=== PATIENT | female | born 1965 | race Caucasian/White ===

== ENCOUNTER → 2017-12-24 | Outpatient (CLI) | payer BC ==
[~2017-12-24] MED LIST: PREMARIN0.625 MG PO
--- NOTE | 2017-12-24 09:39 | Diagnostic Imaging Report ---
PROCEDURE:ABDOMINAL ULTRASOUND COMPARISON:None. INDICATIONS:Epigastric Pain, Screening for Colon Cancer TECHNIQUE:Dan scale and color Doppler ultrasound abdomen FINDINGS: Imaged portions of the inferior vena cava and abdominal aorta are of normal caliber. Normal pancreas. Right liver span 13.5 cm. Normal liver. Portal vein diameter 1.1 cm; normal flow direction. Normal gallbladder. Wall thickness 0.2 cm area common bile duct diameter is 0.6 cm. Right kidney span: 9.6 cm. Left kidney span: 10.4 cm. Normal kidneys. Spleen length 6 cm. No ascites. CONCLUSION: Normal abdominal ultrasound. Dictated by: Jared Flores M.D. on 12/24/2017 at 9:41 Electronically approved by: Jared Flores M.D. on 12/24/2017 at 9:41
== END ==
LOC: US 08:00
PROVIDERS: ATTEND Internal Medicine Gastroenterology
CPT/HCPCS: 76700